=== PATIENT | female | born 1940 | race Caucasian/White ===

== ENCOUNTER → 2018-08-16 | Outpatient (CLI) | payer MEDICARE, BC ==
[~2018-08-16] MED LIST: ASPIRIN81 M2 PO; BYSTOLIC10 MG PO; MULTIVITAMINS1 EAC7 PO; NAPROSYN500 MG PO; SYNTHROID75 MCG PO; VICODIN 5-5001 EACH PO; VITAMIN E400 UNIT PO
== END ==
LOC: M.RAD 14:03
DX: Z12.31 Encounter for screening mammogram for malignant neoplasm of breast (principal)

== ENCOUNTER → 2019-06-20 | Outpatient (CLI) | payer MEDICARE, BC | LOC: M.ULTRA 07:28 | DX: N28.1 Cyst of kidney, acquired (principal); N18.3 Chronic kidney disease, stage 3 (moderate) ==

== ENCOUNTER 2019-07-06 09:23 | Inpatient (IN) | payer MEDICARE, BC ==
[~2019-07-06] VITALS: Ht 149.9 cm; Wt 63.0 kg
[2019-07-06] VITALS (9 sets, daily range): BP systolic 101–144; BP diastolic 48–96
[2019-07-06] MEDS ORDERED: COZAAR 25 MG TA25 M1 PO (10:04)
[2019-07-06] MEDS ORDERED: MOBIC15 MG PO (10:04)
[2019-07-06] MEDS ORDERED: LOPRESSOR50 PO (10:04)
[2019-07-06] MEDS ORDERED: VITAMIN D1000 UNI1 PO (10:05)
[2019-07-06] MEDS ORDERED: LIPITOR40 MG PO (10:05)
[2019-07-06] MEDS ORDERED: PLAVIX 75 MG TA75 M1 PO (10:05)
[2019-07-06 10:28] LABS: ABSOLUTE EOSINOPHILS 0.1 thou/uL (0.0-0.7); ABSOLUTE LYMPHOCYTES 1.3 thou/uL (0.8-5.3); ABSOLUTE MONOCYTES 0.5 thou/uL (0.0-1.2); ABSOLUTE NEUTROPHILS 5.6 thou/uL (1.6-8.1); BASOPHILS 0.5 %; EOSINOPHILS 0.8 %; HEMATOCRIT 34.8 % (37.0-47.0); HEMOGLOBIN 12.1 gm/dL (12.0-15.0); LYMPHOCYTES 17.7 %; MCH 30.8 pg (26.0-34.0); MCHC 34.8 g/dL (28.0-37.0); MCV 88.6 fL (80.0-100.0); MONOCYTES 6.8 %; MPV 9.5 fl. (7.2-11.1); NUCLEATED RBCS 0 /100WBC; PLATELET COUNT* 259 thou/uL (150-400); POLYS 74.2 %; RBC 3.93 mil/uL (4.20-5.00); RDW-CV 13.5 % (10.5-14.5); WBC 7.6 thou/uL (4.0-11.0)
[2019-07-06 10:41] LABS: ANION GAP 13 mmol/L (7-16); BUN 15 mg/dL (7-18); CALCIUM 9.4 mg/dL (8.5-10.1); CHLORIDE 100 mmol/L (98-107); CO2 23 mmol/L (21-32); CREATININE 1.1 mg/dL (0.6-1.3); GLUCOSE 121 mg/dL (70-99); POTASSIUM 3.9 mmol/L (3.5-5.1); SODIUM 136 mmol/L (136-145)
[2019-07-06 10:50] LABS: ALBUMIN 3.9 g/dL (3.4-5.0); ALKALINE PHOSPHATASE 77 U/L (46-116); LIPASE 140 U/L (73-393); SGOT 18 U/L (15-37); SGPT 29 U/L (30-65); TOTAL BILIRUBIN 0.8 mg/dL (<0.1-1.0); TOTAL PROTEIN 6.8 g/dL (6.4-8.2); TROPONIN-I LEVEL <0.06 ng/mL (<0.06)
[2019-07-06 11:32] LABS: URINE BILIRUBIN NEGATIVE (Negative); URINE BLOOD NEGATIVE (Negative); URINE CLARITY CLEAR; URINE COLOR YELLOW; URINE GLUCOSE-RANDOM NEGATIVE (Negative); URINE KETONES TRACE (Negative); URINE LEUKOCYTES-REFLEX NEGATIVE (Negative); URINE NITRITE-REFLEX NEGATIVE (Negative); URINE PROTEIN NEGATIVE (Negative); URINE SPECIFIC GRAVITY <= 1.005 (1.005-1.030); URINE UROBILINOGEN 0.2 E.U./dl (0.2-1.0)
[2019-07-07 04:45] VITALS: BP 107/57; BP 114/62
[2019-07-07 05:18] VITALS: BP 92/54
[2019-07-07 07:57] VITALS: BP 115/59
--- NOTE | 2019-07-07 09:20 | CON ---
[address] [address] CONSULTATION Name: ALFONSO HOLT Room: [address] IN .R.#: [id number] Admission: 07/06/19 Attend Phys: Montrell Azevedo Discharge: Date of : 40 Report #: [id number] THIS REPORT FOR: //name// CC: Navdeep Morgan INDICATION: Near syncope. HISTORY OF PRESENT ILLNESS: The patient is a very pleasant 78-year-old white female with history of coronary artery disease, status post percutaneous coronary intervention in 10/2018, at which time she had 2 drug-eluting stents placed to the proximal and mid right coronary artery. She had minimal nonocclusive disease in the remaining arteries. She has normal LV systolic function by noninvasive studies. She has no history of heart failure. At sikh today while standing, she became significantly lightheaded and was assisted back to a seated position. She does not recall the events of the next half hour or so. Per the patient's , she would respond, but had her eyes closed and was not conversant. She was brought to the hospital for further evaluation. She is not having any other symptoms other than occasional episodes of chills and shivering. She denies chest pain. PAST MEDICAL HISTORY: 1. Coronary artery disease. 2. Dyslipidemia. 3. Hypertension. 4. Hyperlipidemia. 5. Hypothyroidism. 6. Fatty liver. PAST SURGICAL HISTORY: 1. Cholecystectomy. 2. Ganglion cyst removed from the right wrist. 3. Hysterectomy. 4. Nasal septal reconstruction. SOCIAL HISTORY: The patient is a lifelong nonsmoker. She does not drink alcohol. FAMILY HISTORY: Positive for coronary artery disease. CURRENT MEDICATIONS: Levothyroxine 75 mcg daily, aspirin 81 mg daily, multivitamin 1 tablet daily, vitamin E 400 units daily, meloxicam 15 mg daily, metoprolol tartrate 50 mg daily, losartan 25 mg daily, Plavix 75 mg daily, atorvastatin 40 mg daily and vitamin D [address] [place] [address] CONSULTATION Name: ALFONSO HOLT Room: [address]#: [id number] Admission: 07/06/19 Attend Phys: Montrell Azevedo Discharge: Date of : 40 Report #: [id number] ALLERGIES: HYDROCHLOROTHIAZIDE AND TETANUS TOXOID. PHYSICAL EXAMINATION: VITAL SIGNS: Stable. Blood pressure 121/53 and pulse is 78 and regular. GENERAL: This is a pleasant lady in no distress. Mood and affect appropriate. HEENT: The patient is wearing glasses. Extraocular muscles intact. Mucous membranes are moist. NECK: Shows no jugular venous distention. There are no carotid bruits. CHEST: Reveals clear lung horn. CARDIOVASCULAR: Reveals a regular rhythm with normal S1 and S2. I do not appreciate gallop or murmur. ABDOMEN: Reveals normal bowel sounds. The abdomen is soft, nontender. EXTREMITIES: Shows no edema. Peripheral pulses palpable. SKIN: Warm and dry. LABORATORY DATA: Labs are reviewed. Sodium 136, potassium 3.9, chloride 100, bicarbonate 23, BUN 15, creatinine 1.1, serum glucose 121, AST 18, lipase 140, total bilirubin 0.8, calcium 9.4, magnesium 1.9, alkaline phosphatase 77, ALT 29, total protein 6.8, albumin 3.9, EGFR 48. Troponin less than 0.06 on 2 separate occasions. Coags are within normal limits. White blood cell count 7.6, hemoglobin 12.1 and platelet count 259,000. UA is unremarkable. CT of the chest was unremarkable with no evidence of dissection. No evidence of pulmonary embolus. Chest x-ray showed no acute cardiopulmonary abnormality. CT of the head was unremarkable. IMPRESSION AND RECOMMENDATIONS: 1. Coronary artery disease, presently stable. She is not having any symptoms to suggest unstable angina or acute coronary syndrome. Continue Plavix and aspirin. 2. Hypertension. Blood pressure adequately controlled on current regimen. 3. Hyperlipidemia. Continue atorvastatin 40 mg daily. 4. Near-syncope, etiology is not clear. The patient's EKG shows a sinus rhythm without significant ST- or T-wave abnormality. Some artifact was noted on some of the Emergency Room EKGs. This is due to shivering. Continue telemetry monitoring at this time. We will repeat echocardiogram. <ELECTRONICALLY SIGNED> By: Lit Cabello MD, FACC 07/07/19 0920 1615 1909Lit Cabello MD, FACC /nt
[2019-07-07 12:11] VITALS: BP 125/65
--- NOTE | 2019-07-07 15:02 | 2DMMODE ---
[place] [address] 2 D/M-MODE ECHOCARDIOGRAM Name: ALFONSO HOLT Room: [address] IN [facility]#: [id number] Admission: 07/06/19 Attend Phys: Liz Morgan Discharge: Date of : 40 Date of Service: 07/07/19 1502 Report #: [id number] THIS REPORT FOR: //name// APPROVED REPORT Study performed: 07/07/2019 10:50:33 EXAM: Comprehensive 2D, Doppler, and color-flow Echocardiogram Patient Location: In-Patient Room #: 218 Status: routine BSA: 1.58 HR: 62 bpm BP: 115/59 mmHg Rhythm: NSR Other Information Study Quality: Good 2D Dimensions IVSd: 8.28 (7-11mm) LVOT Diam: 18.80 (18-24mm) LVDd: 49.26 mm PWd: 7.88 (7-11mm) Ascending Ao: 34.14 (22-36mm) LVDs: 27.45 (25-40mm) Aortic Root: 30.93 mm Volumes Left Atrial Volume (Systole) LA ESV Index: 39.30 mL/m2 Aortic Valve AoV Peak Jorge.: 1.53 m/s AO Peak Gr.: 9.34 mmHg LVOT Max P.51 mmHg AO Mean Gr.: 5.01 mmHg LVOT Mean P.59 mmHg LVOT Max V: 1.28 m/s AO V2 VTI: 32.03 cm LVOT Mean V: 0.72 m/s YUNI (VTI): 2.47 cm2 LVOT V1 VTI: 28.54 cm Mitral Valve E/A Ratio: 0.82 MV Decel. Time: 264.05 ms MV E Max Jorge.: 0.98 m/s MV PHT: 76.57 ms MVA (PHT): 2.87 [place]2 [place] [address] 2 D/M-MODE ECHOCARDIOGRAM Name: ALFONSO HOLT Room: [address] IN .R.#: [id number] Admission: 07/06/19 Attend Phys: Liz Morgan Discharge: Date of : 40 Date of Service: 07/07/19 1502 Report #: [id number] TDI E/Lateral E': 12.25 E/Medial E': 14.00 Medial E' Jorge.: 0.07 m/s Lateral E' Jorge.: 0.08 m/s Pulmonary Valve PV Peak Jorge.: 0.82 m/s PV Peak Gr.: 2.68 mmHg Tricuspid Valve RAP Estimate: 5.00 mmHg TR Peak Gr.: 19.72 mmHg RVSP: 24.00 mmHg PA Pressure: 24.00 mmHg Left Ventricle The left ventricle is normal size. There is normal LV segmental wall motion. There is normal left ventricular wall thickness. Left ventricular systolic function is normal. The left ventricular ejection fraction is within the normal range. LVEF is 60%. Grade I - abnormal relaxation pattern. Right Ventricle The right ventricle is normal size. The right ventricular systolic function is normal. Atria Left atrium is mildly dilated. The right atrium size is normal. Aortic Valve Mild aortic valve sclerosis. Mild aortic regurgitation. There is no aortic valvular stenosis. Mitral Valve There is mitral annular calcification. Mild to moderate mitral regurgitation. No evidence of mitral valve stenosis. Tricuspid Valve The tricuspid valve is normal in structure. Trace tricuspid regurgitation. No pulmonary hypertension. Pulmonic Valve The pulmonary valve is normal in structure. There is no pulmonic valvular regurgitation. Great Vessels The aortic root is normal in size. IVC [place] [address] 2 D/M-MODE ECHOCARDIOGRAM Name: ALFONSO HOLT Room: [address] IN [facility]#: [id number] Admission: 07/06/19 Attend Phys: Liz Morgan Discharge: Date of : 40 Date of Service: 07/07/19 1502 Report #: [id number] collapses >50% with inspiration. Pericardium There is no pericardial effusion. <Conclusion> The left ventricle is normal size. There is normal left ventricular wall thickness. Left ventricular systolic function is normal. The left ventricular ejection fraction is within the normal range. LVEF is 60%. Grade I - abnormal relaxation pattern. The right ventricle is normal size. Left atrium is mildly dilated. Mild aortic valve sclerosis. Mild aortic regurgitation. There is no aortic valvular stenosis. There is mitral annular calcification. Mild to moderate mitral regurgitation. No evidence of mitral valve stenosis. The tricuspid valve is normal in structure. IVC is normal in size and collapses >50% with inspiration. There is no pericardial effusion. There is normal LV segmental wall motion. <ELECTRONICALLY SIGNED> By: Yinka Story MD, FACC 07/07/19 1502 150 150 Yinka Story MD, FACC /INF
[2019-07-07 15:39] VITALS: BP 125/65
--- NOTE | 2019-07-07 16:16 | EKG ---
[place] [address] ELECTROCARDIOGRAM REPORT Name: ALFONSO HOLT Room: [address] ADM IN .R.#: [id number] Admission: 07/06/19 Attend Phys: Montrell Azevedo Discharge: Date of : 40 Report #: [id number] THIS REPORT FOR: //name// 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
--- NOTE | 2019-07-07 16:18 | EKG ---
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: : 1940 Requested By: Michael Koroma Order Number: [id number] Devi MD: Yinka Story Measurements Intervals [place] Rate: 67 P: 58 VT: 191 QRS: -6 QRSD: 93 T: 0 QT: 406 QTc: 429 Interpretive Statements Sinus rhythm Ventricular premature complex Borderline T abnormalities, anterior leads Compared to ECG 02/27/2009 23:16:27 Ventricular premature complex(es) now present T-wave abnormality now present ST (T wave) deviation no longer present Electronically Signed On 07-07-2019 16:18:17 CDT by Yinka Story [email or web address] <ELECTRONICALLY SIGNED> By: Yinka Story MD, FACC 07/07/19 1618 1042 1042 Yinka Story MD, FACC /EPI
== END 2019-07-07 16:00 | disposition home or self-care (01) | DRG 310 ==
LOC: M.ERS 09:23 → M.2W 11:33 → M.TBA-ER 11:33 → M.ICU 14:13 → M.2W 19:59
PROVIDERS: Emergency Medicine Emergency Medical Services; ADMIT Internal Medicine
DX: I45.81 Long QT syndrome (principal); I10 Essential (primary) hypertension; I25.10 Atherosclerotic heart disease of native coronary artery without angina pectoris; E78.5 Hyperlipidemia, unspecified; E03.9 Hypothyroidism, unspecified; I25.2 Old myocardial infarction; Z95.5 Presence of coronary angioplasty implant and graft; Z90.710 Acquired absence of both cervix and uterus; Z79.899 Other long term (current) drug therapy; Z79.82 Long term (current) use of aspirin; Z88.8 Allergy status to other drugs, medicaments and biological substances; Z90.49 Acquired absence of other specified parts of digestive tract; Z82.49 Family history of ischemic heart disease and other diseases of the circulatory system; Z79.02 Long term (current) use of antithrombotics/antiplatelets

== ENCOUNTER → 2019-08-22 | Outpatient (CLI) | payer MEDICARE, BC ==
[~2019-08-22] MED LIST changes: +COZAAR 25 MG TA25 M1 PO; +LIPITOR40 MG PO; +LOPRESSOR50 PO; +MOBIC15 MG PO; +PLAVIX 75 MG TA75 M1 PO; +VITAMIN D1000 UNI1 PO
== END ==
LOC: M.RAD 08:37
DX: Z12.31 Encounter for screening mammogram for malignant neoplasm of breast (principal)

== ENCOUNTER 2020-04-14 05:25 | Inpatient (IN) | payer MEDICARE, BC ==
[~2020-04-14] VITALS: Ht 149.9 cm; Wt 56.2 kg
--- NOTE | ~2020-04-14 | OP ---
[facility] [address] [place] [address] OPERATIVE REPORT Name: JONATHONALFONSO C Room: [address] IN [facility].#: [id number] Admission: 04/15/20 Attend Phys: Denise Cordova Discharge: Date of : 40 Report #: [id number] THIS REPORT FOR: //name// cc: Navdeep Borges DO Navdeep Borges DO ~ THIS REPORT FOR: //name// CC: Navdeep Martinez DATE OF SERVICE: 04/15/2020 PREOPERATIVE DIAGNOSIS: Severe left internal carotid artery stenosis. POSTOPERATIVE DIAGNOSIS: Severe left internal carotid artery stenosis. PROCEDURES: 1. Left carotid endarterectomy with patch angioplasty. 2. Intraoperative ultrasound with interpretation. FINDINGS ON ULTRASOUND: 1. Normal waveform and velocity identified in the common and internal carotid arteries. 2. Patent flow identified on the external carotid artery on color flow imaging. 3. No flaps or defects identified on correa-scale imaging. Ekg Monitor Tech pictures were taken. SURGEON: Enrike Pak MD. TRACK INSPECTING SUPERVISOR: Dr. Isidro, Resident year 4. COMPLICATIONS: None. ESTIMATED BLOOD LOSS: 100 mL. SPECIMEN: Includes plaque. ANESTHESIA: General. INDICATIONS FOR PROCEDURE: The patient is a very pleasant 79-year-old white female with severe left internal carotid artery stenosis. We plan for a left carotid endarterectomy today. Informed consent was obtained from the patient with risks including but not limited to bleeding, infection, need for further surgery, pain, , heart attack, stroke, cranial nerve injury. The patient understood these risks and [place] [address] OPERATIVE REPORT Name: ALFONSO HOLT Ila Room: [address] IN R.#: [id number] Admission: 04/15/20 Attend Phys: Denise Cordova Discharge: Date of : 40 Report #: [id number] DESCRIPTION OF PROCEDURE: The patient was taken to the OR and placed in supine position. General anesthesia was initiated. Left neck and chest were prepped and draped in usual sterile fashion. The patient received appropriate perioperative antibiotics. The patient was systemically heparinized throughout the critical portions of the procedure. I created a transverse incision in the patient's left neck. Sharp and blunt dissections were carried down along the anterior border of the sternocleidomastoid muscle. Multiple branches of the facial vein were divided between ties and clips. We entered the carotid sheath. We controlled the common carotid artery as well as the branches of the internal and external carotid artery. I injected the carotid bulb with 1% lidocaine. We heparinized the patient. We created a longitudinal arteriotomy from the common carotid artery onto the internal carotid artery. Using a [place] elevator and a pair of pickups, we performed endarterectomy in the standard fashion. We performed eversion endarterectomy of the external carotid artery as well. We were able to get a feathered edge leading into the internal carotid artery. We took our time to remove the bits and pieces of plaque from the posterior wall. We then closed our arteriotomy with a bovine pericardial patch and a running 6-0 Prolene suture. At the completion of the repair, there was adequate hemostasis and excellent blood flow into the internal and external carotid arteries. We performed our intraoperative ultrasound with findings noted above. I corrected the heparin with protamine. We irrigated with antibiotic saline. We controlled bleeding as needed with electrocautery, ties, clips, and Eddie. We closed the wound in multiple layers using 2-0 Vicryl, 3-0 Vicryl, and Monocryl for the skin. Incision was dressed with Dermabond. The patient tolerated the procedure well and was taken alert and awake to recovery room in good condition, neurologically intact. By: 1549 1731Rrai Pak MD /shantal
[~2020-04-14 05:25] MED LIST changes: +LEVOXYL88 MCG PO; +VITAMIN D325 MC3 PO
[2020-04-15] VITALS (25 sets, daily range): BP systolic 90–156; BP diastolic 41–72
[2020-04-15 14:03] LABS: CALCIUM 8.8 mg/dL (8.5-10.1); CREATININE 0.9 mg/dL (0.6-1.3); POTASSIUM 3.7 mmol/L (3.5-5.1)
[2020-04-15 14:17] LABS: HEMATOCRIT 34.9 % (37.0-47.0); MCH 30.7 pg (26.0-34.0); MCHC 34.5 g/dL (28.0-37.0); MCV 89.1 fL (80.0-100.0); MPV 9.7 fl. (7.2-11.1); RBC 3.91 mil/uL (4.20-5.00); RDW-CV 13.5 % (10.5-14.5); WBC 5.7 thou/uL (4.0-11.0)
--- NOTE | 2020-04-15 14:35 | EKG ---
[place] [address] ELECTROCARDIOGRAM REPORT Name: ALFONSO HOLT Room: [place] [address] ADM IN .R.#: [id number] Admission: 04/15/20 Attend Phys: Jay Martinez Discharge: Date of : 40 Date of Service: 04/15/20 1315 Report #: [id number] THIS REPORT FOR: //name// 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
[2020-04-16] VITALS (39 sets, daily range): BP systolic 88–137; BP diastolic 39–92
[2020-04-16 04:27] LABS: HEMATOCRIT 28.6 % (37.0-47.0); MCH 30.9 pg (26.0-34.0); MCHC 34.6 g/dL (28.0-37.0); MCV 89.4 fL (80.0-100.0); MPV 9.9 fl. (7.2-11.1); RBC 3.2 mil/uL (4.20-5.00); RDW-CV 13.8 % (10.5-14.5)
[2020-04-16 04:32] LABS: HEMOGLOBIN 9.9 gm/dL (12.0-15.0)
[2020-04-16] MEDS ORDERED: LORCET 5-325 M1 EACH PO (10:07)
--- NOTE | 2020-04-19 18:06 | PATH ---
[address] [address] PATHOLOGY RPT PROCEDURE Name: ROSARIO HOLT Room: [address] IN M.R.#: [id number] Admission: 04/15/20 Date of : 40 Discharge: 04/16/20 Report #: [id number] Path Case #: [id number] [facility] Accession Number: [id number] . 01 Material submitted: . carotid body - CAROTID PLAQUE . 01 Clinical history: . Left carotid stenosis . 02 Diagnosis: Carotid plaque: - Fibrointimal atherosclerotic plaque with calcification. (CORAL:katrin; 04/19/2020) S 04/19/2020 1339 Local . 02 Electronically signed: . Drake Morataya MD, Pathologist NPI- [id number] . 01 Gross description: . The specimen is received in formalin, labeled "Rosario Holt, carotid plaque" and consists of a rubbery to calcified yellow-villarreal tissue measuring 1.7 x 1.0 x 0.4 cm which is entirely submitted in A1 following the decalcification. (SDY; 04/16/2020) SYU/SYU 04/16/2020 1049 Local . 02 Pathologist provided ICD-10: I77.1 . 02 CPT . 243674, 074336 Specimen Comment: A courtesy copy of this report has been sent to [phone], [phone] Specimen Comment: [phone], Specimen Comment: Report sent to ,DR MORGAN / DR PERLA Performed at: 01 [facility] [address], [place] [id number] MD Gavino Zhu MD Phone: [phone] Performed at: 02 [facility] [address], [place], [place] [id number] MD Drake Morataya MD Phone: [phone]
== END 2020-04-16 11:00 | disposition home or self-care (01) | DRG 38 ==
LOC: M.PRE 05:25 → M.TBA 04-15 12:44 → M.ICU 04-15 12:44
PROVIDERS: Surgery Vascular Surgery; ADMIT Internal Medicine; ATTEND Internal Medicine
PROC: B34 Imaging, Upper Arteries, Ultrasonography (ICD-10-PCS; principal; 2020-04-15)
PROC: 03UL0JZ Supplement Left Internal Carotid Artery with Synthetic Substitute, Open Approach (ICD-10-PCS; principal; 2020-04-15)
PROC: 03CL0ZZ Extirpation of Matter from Left Internal Carotid Artery, Open Approach (ICD-10-PCS; principal; 2020-04-15)
PROC: B34 Imaging, Upper Arteries, Ultrasonography (ICD-10-PCS; principal; 2020-04-15)
DX: I65.22 Occlusion and stenosis of left carotid artery (principal); R71.0 Precipitous drop in hematocrit; I16.0 Hypertensive urgency; I10 Essential (primary) hypertension; E78.5 Hyperlipidemia, unspecified; E03.9 Hypothyroidism, unspecified; M81.0 Age-related osteoporosis without current pathological fracture; I25.10 Atherosclerotic heart disease of native coronary artery without angina pectoris; I25.2 Old myocardial infarction; Z95.5 Presence of coronary angioplasty implant and graft; Z90.710 Acquired absence of both cervix and uterus; Z79.899 Other long term (current) drug therapy

== ENCOUNTER → 2021-01-21 | Outpatient (CLI) | payer MEDICARE, BC ==
[~2021-01-21] MED LIST changes: +LORCET 5-325 M1 EACH PO
== END ==
LOC: M.RAD 09:47
PROVIDERS: ATTEND Family Medicine
DX: Z12.31 Encounter for screening mammogram for malignant neoplasm of breast (principal)